=== PATIENT | female | born 1945 | race Caucasian/White ===

== ENCOUNTER 2017-09-10 08:41 | Emergency (ER) | payer MEDICARE ==
[2017-09-10] MEDS ORDERED: NS 0.9% 1000 ML* 1,000 ML IV ONE ×2 (09:40→11:29)
[2017-09-10 09:45] LABS: ABS Basophils 0 10^3/ul (0-0.2); ABS Eosinophils 0.1 10^3/ul (0-0.6); ABS Lymphocytes 1.3 10^3/ul (1.0-4.8); ABS Monocytes 0.5 10^3/ul (0-0.8); ABS Neutrophils 2.1 10^3/ul (1.5-7.7); ABS Nucleated RBC 0 10^3/ul; Eosinophil % 3.3 % (0-6); Hematocrit 42 % (35-47); Hemoglobin 13.9 g/dl (12.0-16.0); Lymphocyte % 31.7 % (25-47); Mean Corpuscular HGB Conc 33 g/dl (31-36); Mean Corpuscular Hemoglobin 30 pg (27-31); Mean Corpuscular Volume 89 fL (80-97); Nucleated Red Blood Cells % 0.1; Platelet Count 182 10^3/ul (150-450); Red Blood Count 4.72 10^6/ul (4.0-5.4); Red Cell Distribution Width 14 % (10.5-15); White Blood Count 4.1 10^3/ul (3.5-10.8)
[2017-09-10 09:58] LABS: EGFR Non-African American 63.8 (>60)
[2017-09-10 13:22] LABS: Urine Appearance Clear; Urine Blood Negative (Negative); Urine Color Straw; Urine Ketones Negative (Negative); Urine Protein Negative (Negative); Urine Specific Gravity 1.004 (1.010-1.030); Urine Urobilinogen Negative (Negative)
[2017-09-10 14:46] VITALS: BP 150/74
--- NOTE | 2017-09-10 15:48 | ED ---
Elias Che Stephanie, scribed for Isaías Palma MD on 09/10/17 at 0952 . Psychiatric Complaint - HPI Summary HPI Summary: The pt is a 72 y/o F presenting to the ED with c/o depression that began yesterday s/p of her favorite dog. The pt denies SOB. She reports she recently was treated for PNA. The pt states she is also undergoing recent stress due to adjusting to her husbands memory loss. The pt states she took 3 Tylenol 08:00 and 4 Xanax 0.05 at 08:00 with wine. Per triage note, when the pt was asked if she was trying to commit suicide, her answer was I dont think so. The pt has a hx of depression. - History Of Current Complaint Chief Complaint: EDMentalHealth Time Seen by Provider: 09/10/17 08:58 Accompanied By: and grandchildren Hx Obtained From: Patient ?: No Onset/Duration: Gradual Onset, Lasting Days - 1, Still Present Timing: Constant Severity Currently: Mild Character: Depressed Aggravating Factor(s): Recent Stress - dealing with memory loss of and recent of her favorite dog Alleviating Factor(s): Nothing Has Suicidal: Denies: Thoughts - Allergies/Home Medications Allergies/Adverse Reactions: Allergies Allergy/AdvReac Type Severity Reaction Status Date / Time No Known Allergies Allergy Verified 03/23/15 13:50 Home Medications: Home Medications Lovastatin(NF) [Mevacor(NF)] 20 mg PO DAILY 09/10/17 [History Confirmed 09/10/17 ] PMH/Surg Hx/FS Hx/Imm Hx Sensory History: Denies: Hx Legally Blind EENT History: Denies: Hx Deafness Psychiatric History: Reports: Hx Depression - Cancer History Hx Chemotherapy: No Hx Radiation Therapy: No - Surgical History Surgery Procedure, Year, and Place: NONE Infectious Disease History: No Infectious Disease History: Denies: Traveled Outside the [place] in Last 30 Days - Family History Known Family History: Positive: Unknown - Reviewed and noncontributory - Social History Occupation: Retired Lives: With Family Alcohol Use: Occasionally Hx Substance Use: No Substance Use Type: Reports: None Hx Tobacco Use: No Smoking Status (MU): Never Smoked Tobacco Do You Chew or Dip Tobacco: No Have You Chewed or Dipped Tobacco in the LAST YEAR: No Have You Smoked in the Last Year: No Review of Systems Negative: Fever Negative: Shortness Of Breath Positive: Depressed All Other Systems Reviewed And Are Negative: Yes Physical Exam - Summary Physical Exam Summary: General: well-appearing, no pain distress Skin: warm, color reflects adequate perfusion, dry Head: normal Eyes: EOMI, COSME ENT: normal Neck: supple, nontender Respiratory: CTA, breath sounds present Cardiovascular: RRR Abdomen: soft, nontender Bowel: present Musculoskeletal: normal, strength/ROM intact Neurological: normal, sensory/motor intact, A&O x3 Psychological: Flat affect Triage Information Reviewed: Yes Vital Signs On Initial Exam: Initial Vitals Temp Pulse Resp BP Pulse Ox 98.0 F 102 18 106/73 91 09/10/17 08:43 09/10/17 08:43 09/10/17 08:43 09/10/17 08:43 09/10/17 08:43 Vital Signs Reviewed: Yes Diagnostics - Vital Signs Vital Signs Temp Pulse Resp BP Pulse Ox 09/10/17 08:43 98.0 F 102 18 106/73 91 - Laboratory Lab Results: Lab Results 09/10/17 Range/Units 09:25 WBC 4.1 (3.5-10.8) 10^3/ul RBC 4.72 (4.0-5.4) 10^6/ul Hgb 13.9 (12.0-16.0) g/dl Hct 42 (35-47) % MCV 89 (80-97) fL MCH 30 (27-31) pg MCHC 33 (31-36) g/dl RDW 14 (10.5-15) % Plt Count 182 (150-450) 10^3/ul MPV 7.0 L (7.4-10.4) um3 Neut % (Auto) 51.8 (38-83) % Lymph % (Auto) 31.7 (25-47) % Woodson % (Auto) 12.3 H (0-7) % Eos % (Auto) 3.3 (0-6) % Baso % (Auto) 0.9 (0-2) % Absolute Neuts (auto) 2.1 (1.5-7.7) 10^3/ul Absolute Lymphs (auto) 1.3 (1.0-4.8) 10^3/ul Absolute Monos (auto) 0.5 (0-0.8) 10^3/ul Absolute Eos (auto) 0.1 (0-0.6) 10^3/ul Absolute Basos (auto) 0 (0-0.2) 10^3/ul Absolute Nucleated RBC 0 10^3/ul Nucleated RBC % 0.1 Result Diagrams: 09/10/17 09:25 03 09:25 Lab Statement: Any lab studies that have been ordered have been reviewed, and results considered in the medical decision making process. Re-Evaluation - Re-Evaluation First Eval Re-Evaluation Time: 11:27 Change: Unchanged - The pt's affect has remained unchanged. Course/Dx - Course Course Of Treatment: DISCHARGE HOME STABLE AFTER MHE - Differential Dx/Clinical Impression Provider Diagnosis: Mental health problem Discharge - Sign-Out/Discharge Documenting (check all that apply): Discharge - Discharge Plan Condition: Stable Disposition: HOME Referrals: Roxana Oquendo MD [Primary Care Provider] - - Billing Disposition and Condition Condition: STABLE Disposition: HOME The documentation as recorded by the Elias justice Stephanie accurately reflects the service I personally performed and the decisions made by , Isaías Palma MD.
--- NOTE | 2017-09-12 09:22 | PN ---
Progress Note - Progress Note Date of Service: 09/12/17 Note: Patient's urine culture grew strep group B 75 through 100,000. Left voice mail telling if has symptoms to call back to ED and will start treatment.
== END 2017-09-10 14:44 | disposition home or self-care (01) ==
LOC: ED 08:41
DX: F32.9 Major depressive disorder, single episode, unspecified (principal)
CPT/HCPCS: 36415; 80053; 80307; 80320; 80329; 81003; 81015; 84443; 85025; 87077; 87086; 99284; G0480

== ENCOUNTER 2018-08-31 11:35 | Emergency (ER) | payer MEDICARE ==
--- NOTE | 2018-08-31 11:48 | ED ---
Neurological HPI - HPI Summary HPI Summary: A 73 y/o F presents to ED with loss of vision onset yesterday which has spontaneously resolved. Associated sx: ALANIZ which resolved, difficulty putting together words, dizziness lasting a few seconds; RLE numbness to fingers. She took two pain pills and vacuumed afterwards and felt OK. Over the past 1-2 years , she's been having more episodes of ALANIZ with vision loss. While the changes in speech and R finger numbness are new to the past few episodes of ALANIZ and vision loss. At bedside she states feeling OK, but tired. She denies CP, SOB, nausea, fever, urinary sx. She saw her PCP today who referred her to the ED. She has not had her ALANIZ and vision changes evaluated previously. - History of Current Complaint Chief Complaint: EDNeurologicalDeficit Stated Complaint: STROKE LIKE SYMPTOMS YESTERDAY PER PT Time Seen by Provider: 08/31/18 11:46 Hx Obtained From: Patient Onset/Duration: Sudden Onset, Started days ago - yesterday, Resolved Onset Severity: Mild Current Severity: None Pain Intensity: 0 Pain Scale Used: 0-10 Numeric Alleviating: Spontanious Resolution Associated Signs and Symptoms: Positive: Visual Changes, Headache, Dizziness, Impaired Speech - difficulty finding words, Numbness - R hand. Negative: Nausea /Vomiting, Fever, Chest Pain, Shortness of Breath - Allergy/Home Medications Allergies/Adverse Reactions: Allergies Allergy/AdvReac Type Severity Reaction Status Date / Time No Known Allergies Allergy Verified 03/23/15 13:50 PMH/Surg Hx/FS Hx/Imm Hx Previously Healthy: No Sensory History: Denies: Hx Legally Blind, Hx Deafness Opthamlomology History: Denies: Hx Legally Blind Neurological History: Reports: Hx Headaches Psychiatric History: Reports: Hx Depression Denies: Hx Eating Disorder, Hx of Violent Episodes Against Others - Cancer History Hx Chemotherapy: No Hx Radiation Therapy: No - Surgical History Surgery Procedure, Year, and Place: NONE Infectious Disease History: No Infectious Disease History: Denies: Traveled Outside the [place] in Last 30 Days - Family History Family History: pos: Breast CA - Social History Occupation: Retired Lives: With Family Alcohol Use: Occasionally Hx Substance Use: No Substance Use Type: Reports: None Hx Tobacco Use: No Smoking Status (MU): Never Smoked Tobacco Have You Smoked in the Last Year: No Review of Systems Positive: Fatigue. Negative: Fever Eyes: Other - pos: vision loss, resolved Negative: Chest Pain Negative: Shortness Of Breath Negative: Nausea Neurological: Other - pos: difficulty finding words, dizziness Positive: Headache, Numbness - R hand All Other Systems Reviewed And Are Negative: Yes Physical Exam - Summary Physical Exam Summary: Constitutional: Well-developed, Well-nourished, Alert. (-) Distressed Skin: Warm, Dry HENT: Normocephalic; Atraumatic Eyes: Conjunctiva normal Neck: Musculoskeletal ROM normal neck. (-) JVD, (-) Stridor, (-) Tracheal deviation Cardio: Rhythm regular, rate normal, Heart sounds normal; Intact distal pulses; The pedal pulses are 2+ and symmetric. Radial pulses are 2+ and symmetric. (-) Murmur Pulmonary/Chest wall: Effort normal. (-) Respiratory distress, (-) Wheezes, (-) Rales Abd: Soft, (-) tenderness, (-) Distension, (-) Guarding, (-) Rebound Musculoskeletal: (-) Edema Lymph: (-) Cervical adenopathy Neuro: Alert, Oriented x3 Psych: Mood and affect Normal NIH: 0 GCS: 15 Triage Information Reviewed: Yes Vital Signs On Initial Exam: Initial Vitals Temp Pulse Resp BP Pulse Ox 97.2 F 67 18 170/99 98 08/31/18 11:41 08/31/18 11:41 08/31/18 11:41 08/31/18 11:41 08/31/18 11:41 Vital Signs Reviewed: Yes - Krystal Coma Scale Best Eye Response: 4 - Spontaneous Best Motor Response: 6 - Obeys Commands Best Verbal Response: 5 - Oriented Coma Scale Total: 15 Diagnostics - Vital Signs Vital Signs Temp Pulse Resp BP Pulse Ox 08/31/18 11:41 97.2 F 67 18 170/99 98 - Laboratory Result Diagrams: 08/31/18 12:07 08/31/18 12:07 Lab Statement: Any lab studies that have been ordered have been reviewed, and results considered in the medical decision making process. - Radiology CXR Radiology Interpretation Completed By: Radiologist Summary of Radiographic Findings: IMPRESSION: NO ACTIVE CARDIOPULMONARY DISEASE. ED provider has reviewed this report. - CT BRAIN CT Interpretation Completed By: Radiologist Summary of CT Findings: IMPRESSION: No intracranial mass or hemorrhage is identified. ED provider has reviewed this report. - EKG 1209 Cardiac Rate: NL - 66 bpm EKG Rhythm: Sinus Rhythm ST Segment: Non-Specific Summary of EKG Findings: Normal sinus rhythm at 66 bpm, normal MT, normal QRS, normal QTc, normal ST, normal T-waves, non-specific EKG. NIH Scale - NIH Scale Level of Consciousness: Alert/Keenly Responsive Ask Patient the Month and His/Her Age: Both Correct Ask Pt to Open/Close Eyes and Director Of Strategic Partnerships/Release Non-Paretic Hand: Both Correctly Best Gaze (Only Horizontal Eye Movement): Normal Visual Field Testing: No Visual Loss Facial Paresis-Pt to Smile & Close Eyes or Grimace Symmetry: Normal/Symmetrical Motor Function - Right Arm: No Drift-Holds 10 Seconds Motor Function - Left Arm: No Drift-Holds 10 Seconds Motor Function - Right Leg: No Drift-Holds 10 Seconds Motor Function - Left Leg: No Drift-Holds 10 Seconds Limb Ataxia-Must be out of Proportion to Weakness Present: Absent Sensory (Use Pinprick to Test Arms/Legs/Trunk/Face): Normal Best Language (Describe Picture, Name Items): No Aphasia Dysarthria (Read Several Words): Normal Extinction and Inattention: No Abnormality Total Score: 0 Re-Evaluation - Re-Evaluation 1 Re-Evaluation Time: 13:35 Change: Unchanged Course/Dx - Course Course Of Treatment: Pt is a 73 y/o F presenting with loss of vision, ALANIZ onset yesterday which have spontaneously resolved. Associated sx: difficulty putting together words, dizziness lasting a few seconds; RLE numbness to fingers. She's been more frequent episodes of sx in past 1-2 years. She denies CP, SOB, nausea , fever, urinary sx. PE is unremarkable, patient is neurologically intact. NIH : 0. GCS: 15. EKG shows NSR at 66 bpm, normal MT, normal QRS, normal QTc, normal ST, normal T-waves, it is a non-specific EKG. CXR shows no active cardiopulmonary disease. Brain CT shows no intracranial mass or hemorrhage is identified. UA shows 1+ leukocyte esterase, ascorbic acid present, squamous cells present. Lab work is without significant abnormality except: MPV: 6.8, glucose: 111, total protein: 6.1. Patient will be discharged home. - Diagnoses Provider Diagnoses: Atypical migraine - Physician Notifications Discussed Care Of Patient With: Adolfo Starkeytiny - neuro Time Discussed With Above Provider: 12:44 Instructed by Provider To: Other - Recommends out-patient treatment Discharge - Sign-Out/Discharge Documenting (check all that apply): Patient Departure - D/C Patient Received Moderate/Deep Sedation with Procedure: No - Discharge Plan Condition: Improved Disposition: HOME Patient Education Materials: Migraine Headache (ED) Print Language: CAP[place] Referrals: Kale Porras MD [Medical Doctor] - Roxana Oquendo MD [Primary Care Provider] - - Attestation Statements Document Initiated by Scribe: Yes Documenting Scribe: Jean Kellogg Provider For Whom Scribe is Documenting (Include Credential): Dr. Cecily Sawyer Scribe Attestation: I, Jean Kellogg, scribed for Dr. Cecily Sawyer on 08/31/18 at 1511.
[2018-08-31 12:24] LABS: ABS Basophils 0 10^3/ul (0-0.2); ABS Eosinophils 0.1 10^3/ul (0-0.6); ABS Monocytes 0.4 10^3/ul (0-0.8); ABS Nucleated RBC 0 10^3/ul; Eosinophil % 1.9 %; Hematocrit 39 % (33-41); Hemoglobin 13.1 g/dL (12.0-16.0); Lymphocyte % 22.3 %; Mean Corpuscular HGB Conc 34 g/dL (31-36); Mean Corpuscular Hemoglobin 30 pg (27-31); Mean Corpuscular Volume 91 fL (80-97); Mean Platelet Volume 6.8 fL (7.4-10.4); Nucleated Red Blood Cells % 0; Platelet Count 235 10^3/uL (150-450); Red Blood Count 4.32 10^6 /uL (3.70-4.87); Red Cell Distribution Width 13 % (10.5-15); White Blood Count 4.5 10^3/uL (3.5-10.8)
[2018-08-31 12:32] LABS: INR 0.86 (0.77-1.02)
[2018-08-31 12:45] LABS: Albumin/Globulin Ratio 1.9 (1-3); BUN/Creatinine Ratio 17.7 (8-20); Calcium 9.2 mg/dL (8.6-10.3); EGFR African American 86.1 (>60); EGFR Non-African American 71.1 (>60); Globulin 2.1 g/dL (2-4); Potassium 4.3 mmol/L (3.5-5.0); Total Bilirubin 0.8 mg/dL (0.2-1.0); Total Protein 6.1 g/dL (6.4-8.9)
[2018-08-31 13:31] LABS: Urine Appearance Clear; Urine Bacteria Absent (Absent); Urine Bilirubin Negative (Negative); Urine Blood Negative (Negative); Urine Color Yellow; Urine Glucose Negative (Negative); Urine Ketones Negative (Negative); Urine Nitrite Negative (Negative); Urine Protein Negative (Negative); Urine Red Blood Cell Trace(0-2/hpf) (Absent); Urine Specific Gravity 1.013 (1.010-1.030); Urine Squamous Epithelial Cell Present (Absent); Urine Urobilinogen Negative (Negative); Urine White Blood Cell Trace(0-5/hpf) (Absent)
[2018-08-31 14:29] VITALS: BP 114/81
== END 2018-08-31 14:28 | disposition home or self-care (01) ==
LOC: ED 11:35
DX: G43.909 Migraine, unspecified, not intractable, without status migrainosus (principal); R51 Headache
CPT/HCPCS: 36415; 70450; 71045; 80053; 81003; 81015; 83605; 84484; 85025; 85610; 87086; 93005; 99282